=== PATIENT | male | born 1930 | race Caucasian/White ===

== ENCOUNTER 2016-05-19 11:49 | Inpatient (IN) | payer MEDICARE ==
--- NOTE | ~2016-05-19 | DS ---
Discharge Summary [facility] [address] [place]. [address] NAME: BETO OLIVARES : [birth year] STATUS : DIS IN PAT#: [id number] AGE: 85 ADM/REG DATE : 05/19/16 MR#: [id number] REPORT SERV DATE: 06/02/16 DICTATED BY: MELINA SLOAN DATE: 06/01/16 REPORT STATUS : Draft TRANSCRIBED BY: HARPER DATE: 06/01/16 Data Collection from hospitalization DISCHARGE DIAGNOSES: 1. Acute on chronic congestive heart failure-failed outpatient therapy with oral diuretics. 2. Atrial fibrillation with elevated heart rate to 160. 3. Hypertension with hypotension. 4. Confusion-improved with improvement in failure. 5. Hypertension. 6. Mixed hyperlipidemia. 7. Chronic obstructive pulmonary disease. 8. Coronary artery disease. CONSULTATIONS: Dr. Andrew Meneses. PROCEDURES PERFORMED: MEDICATIONS: DuoNeb inhaled solution one nebulized inhaler four times a day, ProAir two puffs via inhaler as needed, Eliquis 5 mg twice a day, aspirin 81 mg daily, Coreg 6.25 mg twice a day, vitamin D3 of 1000 units daily, vitamin B12 of 500 mcg daily, Clarinex 5 mg daily, Flonase nasal spray one spray nasally daily, Advair Diskus one puff via inhaler twice a day, Lasix 80 mg daily, Mucinex 1200 mg three times a day, Prevacid 15 to 30 mg daily, Zestril 5 mg twice a day, Nitrostat 0.4 mg sublingually as needed, MiraLAX powder one packet daily as needed, K-Tabs 10 mEq daily, Zocor 10 mg at bedtime, Aldactone 25 mg daily. CONDITION AT DISCHARGE: Stable. DISPOSITION: The patient was discharged to home to be followed by home health care on a low- sodium diet with activities as instructed. He would follow up with me 05/28/[address] Andrew Meneses on 06/24/2016. HOSPITAL COURSE: This is an 85-year-old male who had been hospitalized at [facility] with a diagnosis of pneumonia. He had been discharged to a rehab facility. He finished antibiotics a few days prior to this admission. He had problems at home with decreasing O2 saturations and worsening symptoms of dyspnea. The patient was admitted to the hospital at this time for further evaluation and treatment. Upon admission, the patient was seen by Dr. Andrew Meneses regarding his dyspnea. He had had problems at home with decreasing O2 saturation and worsening symptoms of dyspnea. It was felt that he was more volume overloaded. It was recommended that his outpatient oral diuretics be increased. He had no chest pain. He has a history of ischemic cardiomyopathy and an ejection fraction of approximately 35% to 40% by a noninvasive imaging in December 2015. He has been admitted after a long course of treatment for pneumonia with worsening acute on chronic systolic congestive heart failure. His blood pressure was low, IV diuresis was recommended. We would try to add back his Coreg and VERONICA inhibitor if possible. The following day, he said he was feeling okay. He was alert and cooperative. He had no edema. Coreg was increased. Simvastatin was continued. He did have some confusion and fatigue. Discharge Summary [address] [address] NAME: BETO OLIVARES : [birth year] STATUS : DIS IN PAT#: [id number] AGE: 85 ADM/REG DATE : 05/19/16 MR#: [id number] REPORT SERV DATE: 06/02/16 DICTATED BY: MELINA SLOAN DATE: 06/01/16 REPORT STATUS : Draft TRANSCRIBED BY: HARPER DATE: 06/01/16 He was not eating well. Over the next couple of days, he said he was beginning to feel good. Creatinine level was 0.82. Blood pressure had decreased. His beta arash was increased. Simvastatin was continued. Discharge planning was performed. He was up sitting in a recliner. His shortness of breath was much improved. Acute on chronic congestive heart failure had resolved. He was tolerating the increase in Coreg. On 05/22/2016, discharge instructions were given. Due to his improved and stable condition, he was discharged to home, to be followed by home health care with the above-stated instructions. Information collected by: Court Bloom I submit the above information as my discharge summary. HILARIO/HARPER Melina Sloan M.D. / [id number] CC: Sara Galanen, M.D.
--- NOTE | ~2016-05-19 | CN ---
Consultation Report [facility] [address] [facility] [address] [place]. [address] NAME: BETO CASTAÑEDA : [birth year] STATUS : ADM IN [facility]#: [id number] AGE: 85 ADM/REG DATE : 05/19/16 MR#: [id number] REPORT SERV DATE: 05/19/16 DICTATED BY: ANDREW CASTREJON DATE: 05/19/16 REPORT STATUS : Draft TRANSCRIBED BY: MODL DATE: 05/19/16 CONSULTATION DATE OF CONSULTATION: 05/19/2016 CHIEF COMPLAINT: Dyspnea. HISTORY OF PRESENT ILLNESS: Mr. Castañeda is an 85-year-old patient of mine whom I recently saw in the office. He was hospitalized at [place] with a diagnosis of pneumonia. He was discharged to a rehab facility. He finished antibiotics a few days ago. He has had problems at home with decreasing O2 sats and worsening symptoms of dyspnea. I felt this week that he was more volume overloaded. I recommended an increase in his outpatient oral diuretics. He is admitted with worsening symptoms of dyspnea and hypoxia. No chest pain. PAST MEDICAL HISTORY: 1. Coronary artery disease. 2. Congestive heart failure, EF 36% on 12/2015, stress test and echo. 3. COPD. 4. Hypertension. 5. Hyperlipidemia. 6. History of pleural effusion. 7. Recent pneumonia. 8. Chronic atrial fibrillation. FAMILY HISTORY: There is no family history of early coronary artery disease. SOCIAL HISTORY: He does not smoke or drink alcohol. REVIEW OF SYSTEMS: A complete review of systems was obtained, which is negative in detail except as mentioned above in the HPI. ALLERGIES: NO KNOWN DRUG ALLERGIES. MEDICATIONS: Advair Diskus, albuterol inhaler, aspirin 81 mg daily, Coreg 6.25 mg twice a day, Eliquis 5 mg twice a day, potassium 10 mEq daily, Lasix recently increased from 40 to 80 twice a day, lisinopril 5 mg daily, multivitamin, Zocor 10 mg daily. PHYSICAL EXAMINATION: VITAL SIGNS: Blood pressure 99/69, heart rate of 98, respiratory rate of 14. GENERAL: Comfortable in no acute distress. HEENT: Anicteric. No xanthelasma. Lips without cyanosis. NECK: No JVD. Carotids 2+ and symmetric. No carotid bruits. LUNGS/CHEST: No wheezes or rhonchi. No accessory muscle use. Crackles are heard at both Consultation Report [facility] [address] [place]. [address] NAME: BETO CASTAÑEDA : [birth year] STATUS : ADM IN [facility]#: [id number] AGE: 85 ADM/REG DATE : 05/19/16 MR#: [id number] REPORT SERV DATE: 05/19/16 DICTATED BY: ANDREW CASTREJON DATE: 05/19/16 REPORT STATUS : Draft TRANSCRIBED BY: MODL DATE: 05/19/[address] about [address] CARDIAC: Irregularly irregular. Normal S1, S2. ABD: Soft, nontender, nondistended. Normal bowel sounds. No abdominal bruits. EXT: No clubbing, cyanosis or edema 2+ and symmetric distal pulses. SKIN: Warm. Dry. No venous stasis changes. MS: No kyphosis. NEURO/PSYCH: Oriented x3. No anxiety or depression. IMPRESSION: Mr. Castañeda is an 85-year-old man with a history of an ischemic cardiomyopathy and EF approximately 35% to 40% by noninvasive imaging in December 2015. He is admitted after a long course of treatment for pneumonia with worsening acute on chronic systolic congestive heart failure. His blood pressure is low. I have recommended IV diuresis. We will try to add back his Coreg and VERONICA inhibitor if possible. We will follow his laboratory studies including creatinine and potassium closely. RAVI/HARPER Andrew Castrejon M.D. / [id number] CC: Alec Jimenez M.D.
[~2016-05-19 11:49] MED LIST: ACCUNE1 INH; ADVAIR INH; ADVAIR250 INH; ALBUTEROL INH INH; ASAB PO; B12250T PO; CLARINEX5 MG PO; CLARIT10 PO; COREG6 PO; CYANO1000T PO; DUONEB INH; ELIQUIS 5 MG TAB5 MG PO; FLAG500TAB PO; K-TABS10 MEQ PO; KLOR-CON 1010 MEQ PO; L40 PO; L80 PO; LEVAQUIN750 MG PO; MEDROLPAK4 PO; MIRALAXPKT PO; MUCINEX D1 TAB PO; MUCINEX600 MG PO; MULTIVITAMI1 PO; NASONEX NAS; NORV25 PO; NORV5 PO; NTG150 SL; P20 PO; PREV15 PO; PREV30 PO; PROAIR HFA INH; SPIRIVA INH; VASOTEC20 MG PO; VITAMIN B-121000 MC1 SL; VITAMIN D31000 UNIT PO; VITAMIN D400 UNI1 PO; ZITH250 PO; ZOCOR10 PO
[2016-05-19] MEDS ORDERED: FLONASE NAS (12:40)
[2016-05-19] MEDS ORDERED: PREV15 PO (12:41)
[2016-05-19] MEDS ORDERED: ZESTRIL5 MG PO (12:41)
[2016-05-19] MEDS ORDERED: PROAIR HFA INH (12:42)
[2016-05-19] MEDS ORDERED: NITROSTAT0.4 MG SL (12:44)
[2016-05-19 15:03] LABS: BASOPHILS 0.2 %; BASOPHILS ABSOLUTE 0.02 10/3/uL (0.0-0.16); EOSINOPHILS ABSOLUTE 0.32 10/3/uL (0.0-0.53); HEMATOCRIT 34.9 % (40.0-51.0); HEMOGLOBIN 11.3 g/dL (13.6-17.8); IMMATURE GRANULOCYTES 0.4 %; IMMATURE GRANULOCYTES ABSOLUTE 0.03 10/3/uL (0.0-0.11); LYMPHOCYTES 10.9 %; LYMPHOCYTES ABSOLUTE 0.88 10/3/uL (0.67-4.30); MEAN CORPUS HGB CONC 32.4 g/dL (32.0-36.0); MEAN CORPUSCULAR HEMOGLOB 27.6 pg (26.0-34.0); MEAN PLATELET VOLUME 10.2 fL (9.2-13.0); MONOCYTES 11.1 %; NEUTROPHILS 73.4 %; NEUTROPHILS ABSOLUTE 5.93 10/3/uL (2.02-8.40); RBC DISTRIBUTION WIDTH 15.3 % (12.0-16.0); RED CELL COUNT 4.09 10/6/uL (4.7-6.1); WHITE BLOOD CELLS 8.1 10/3/uL (4.5-10.5)
[2016-05-19 15:06] LABS: MANUAL DIFF NO %; MEAN CORPUSCULAR VOLUME 85.3 fL (80-100); PLATELET COUNT 281 10/3/uL (150-400)
[2016-05-19 15:17] LABS: A/G RATIO 0.6 (0.7-1.9); ALBUMIN 2.5 G/DL (3.5-5.0); ALKALINE PHOSPHATASE 76 U/L (45-117); BUN (BLOOD UREA NITROGEN) 14 MG/DL (6-23); CHLORIDE, SERUM 102 MMOL/L (96-112); CREATININE 0.92 MG/DL (0.70-1.30); GFR AFRICAN AMERICAN 86 ML/MIN (>=60); GFR NON AFRICAN AMERICAN 75 ML/MIN (>=60); GLOBULIN 3.9 G/DL (2.5-4.1); SGOT(AST) 14 U/L (5-40); SGPT(ALT) 16 U/L (5-65); SODIUM, SERUM 143 MMOL/L (135-148); TOTAL BILIRUBIN 0.5 MG/DL (0-1.2); TOTAL PROTEIN 6.4 G/DL (6.0-8.5)
[2016-05-19 15:18] LABS: CO2 (CARBON DIOXIDE) 35 MMOL/L (24-34); GLUCOSE, SERUM 144 MG/DL (60-99); POTASSIUM, SERUM 3.1 MMOL/L (3.5-5.3)
[2016-05-20 06:35] LABS: BASOPHILS 0.3 %; BASOPHILS ABSOLUTE 0.02 10/3/uL (0.0-0.16); EOSINOPHILS 4.6 %; EOSINOPHILS ABSOLUTE 0.37 10/3/uL (0.0-0.53); HEMATOCRIT 35.8 % (40.0-51.0); HEMOGLOBIN 11.8 g/dL (13.6-17.8); IMMATURE GRANULOCYTES 0.4 %; IMMATURE GRANULOCYTES ABSOLUTE 0.03 10/3/uL (0.0-0.11); LYMPHOCYTES 8.8 %; MANUAL DIFF NO %; MEAN CORPUSCULAR HEMOGLOB 28.8 pg (26.0-34.0); MEAN CORPUSCULAR VOLUME 87.3 fL (80-100); MEAN PLATELET VOLUME 10.3 fL (9.2-13.0); MONOCYTES 13.4 %; MONOCYTES ABSOLUTE 1.07 10/3/uL (0.21-1.20); NEUTROPHILS 72.5 %; NEUTROPHILS ABSOLUTE 5.79 10/3/uL (2.02-8.40); PLATELET COUNT 263 10/3/uL (150-400); RBC DISTRIBUTION WIDTH 15.1 % (12.0-16.0)
[2016-05-20 06:52] LABS: BUN (BLOOD UREA NITROGEN) 14 MG/DL (6-23); CALCIUM, SERUM 7.8 MG/DL (8.5-10.4); CHLORIDE, SERUM 101 MMOL/L (96-112); CO2 (CARBON DIOXIDE) 33 MMOL/L (24-34); GFR AFRICAN AMERICAN 93 ML/MIN (>=60); GFR NON AFRICAN AMERICAN 80 ML/MIN (>=60); GLUCOSE, SERUM 126 MG/DL (60-99); SODIUM, SERUM 141 MMOL/L (135-148)
[2016-05-20 06:55] LABS: POTASSIUM, SERUM 3.8 MMOL/L (3.5-5.3)
[2016-05-21 06:09] LABS: ALBUMIN 2.2 G/DL (3.5-5.0); BUN (BLOOD UREA NITROGEN) 15 MG/DL (6-23); CALCIUM, SERUM 8.2 MG/DL (8.5-10.4); CHLORIDE, SERUM 100 MMOL/L (96-112); CO2 (CARBON DIOXIDE) 32 MMOL/L (24-34); CREATININE 0.82 MG/DL (0.70-1.30); GFR AFRICAN AMERICAN 92 ML/MIN (>=60); GFR NON AFRICAN AMERICAN 80 ML/MIN (>=60); GLUCOSE, SERUM 106 MG/DL (60-99); POTASSIUM, SERUM 4.1 MMOL/L (3.5-5.3); SODIUM, SERUM 140 MMOL/L (135-148)
[2016-05-22] MEDS ORDERED: SPIRO25 PO (11:13)
== END 2016-05-22 14:27 | disposition home health service (06) | DRG 293 ==
LOC: 1SO 11:49
PROVIDERS: Internal Medicine Cardiovascular Disease; Internal Medicine Geriatric Medicine
DX: I11.0 Hypertensive heart disease with heart failure (principal); I95.9 Hypotension, unspecified; J44.9 Chronic obstructive pulmonary disease, unspecified; I48.2 Chronic atrial fibrillation; Z79.01 Long term (current) use of anticoagulants; I50.23 Acute on chronic systolic (congestive) heart failure; I25.10 Atherosclerotic heart disease of native coronary artery without angina pectoris; R09.02 Hypoxemia; E78.5 Hyperlipidemia, unspecified; I25.5 Ischemic cardiomyopathy; Z87.01 Personal history of pneumonia (recurrent); Z79.82 Long term (current) use of aspirin; Z79.899 Other long term (current) drug therapy
CPT/HCPCS: 71020; 80048; 80053; 82040; 83880; 85025; 94640; A9270-GY; G0463